=== PATIENT | female | born 1995 | race Two or more races ===

== ENCOUNTER 2018-07-15 05:20 | Emergency (ER) | payer MEDICAID, OTHER ==
[~2018-07-15] VITALS: Ht 165.1 cm; Wt 65.8 kg
[2018-07-15 08:57] VITALS: BP 121/79
== END 2018-07-15 12:24 | disposition home or self-care (01) ==
LOC: ER 05:25
DX: S32.029A Unspecified fracture of second lumbar vertebra, initial encounter for closed fracture (principal); S50.02XA Contusion of left elbow, initial encounter; W10.8XXA Fall (on) (from) other stairs and steps, initial encounter; Y93.89 Activity, other specified; Y99.0 Civilian activity done for income or pay; Y92.89 Other specified places as the place of occurrence of the external cause
CPT/HCPCS: 72131; 73080; 81025